=== PATIENT | male | born 1990 | race Two or more races ===

== ENCOUNTER 2020-12-15 23:38 | Emergency (ER) | payer SELFPAY ==
[~2020-12-15] VITALS: Ht 188 cm; Wt 180.5 kg
[2020-12-16 00:10] VITALS: BP 152/74
[2020-12-16] MEDS ORDERED: KETOROLAC TROMETHAMINE INJ 30 MG/ML VIAL ONE (01:19)
[2020-12-16] MEDS ORDERED: KETOROLAC TROMETHAMINE INJ 30 MG/ML VIAL IM ONE (01:30)
[2020-12-16] MEDS ORDERED: IBUP-1955 PO (03:17)
--- NOTE | 2020-12-16 03:27 | NUR ---
Patient discharged to home in stable condition. Written and verbal after care instructions given. Patient verbalizes understanding of instruction. Pt ambulatory with a steady gait
== END 2020-12-16 03:43 | disposition home or self-care (01) ==
LOC: ER 23:41
DX: S40.022A Contusion of left upper arm, initial encounter (principal); S80.12XA Contusion of left lower leg, initial encounter; S80.11XA Contusion of right lower leg, initial encounter; M79.10 Myalgia, unspecified site; V49.49XA Driver injured in collision with other motor vehicles in traffic accident, initial encounter; Y93.89 Activity, other specified; Y92.413 State road as the place of occurrence of the external cause; Y99.8 Other external cause status
CPT/HCPCS: 96372; 99283; J1885